=== PATIENT | female | born 1955 | race Caucasian/White ===

== ENCOUNTER 2023-03-04 13:30 | Emergency (ER) | payer MEDICARE ==
[~2023-03-04] VITALS: Ht 170.2 cm; Wt 85.7 kg
[2023-03-04] MEDS ORDERED: ANAPROX DS550 MG PO (14:58)
[2023-03-04] MEDS ORDERED: METHOCARBAMOL750 MG PO (14:58)
== END 2023-03-04 17:57 | disposition home or self-care (01) ==
LOC: ER 13:38
DX: M54.2 Cervicalgia (principal); M54.50 Low back pain, unspecified; M79.644 Pain in right finger(s); V43.52XA Car driver injured in collision with other type car in traffic accident, initial encounter; Y92.488 Other paved roadways as the place of occurrence of the external cause
CPT/HCPCS: 72110; 72125; 99283